=== PATIENT | male | born 1960 | race Two or more races ===

== ENCOUNTER 2020-06-22 19:58 | Emergency (ER) | payer SELFPAY ==
[~2020-06-22] VITALS: Ht 172.7 cm; Wt 99.8 kg
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
--- NOTE | 2020-06-22 20:15 | NUR ---
BROUGHT TO CT
[2020-06-22] MEDS ORDERED: HYDROMORPHONE 1 MG/1 ML DISP.SYRIN ONE (20:46)
[2020-06-22] MEDS ORDERED: TDAP [DIPH/PERTUSSIS/TET] 0.5 ML VIAL IM ONE (20:46)
[2020-06-22] MEDS: TDAP [DIPH/PERTUSSIS/TET] 0.5 ML VIAL IM ONE (20:54)
[2020-06-22] MEDS: HYDROMORPHONE INJ 2 MG/ML DISP.SYRIN IM ONE (20:54)
--- NOTE | 2020-06-22 21:09 | NUR ---
pt refusing to have sutures
--- NOTE | 2020-06-22 21:16 | NUR ---
CALLED [facility], OP 318, WILL SEND [employer] TO [facility].
--- NOTE | 2020-06-22 21:33 | NUR ---
Note christopher in EDM - 06/22/20 at 2203 by RAMILA Patient discharged to home in stable condition. Written and verbal after care instructions given. Patient verbalizes understanding of instruction and RX. Pt stated he would like to go home and not wait for [employer]. vss. Pt able to ambulate with steady gait.
[2020-06-22 21:34] VITALS: BP 131/76
[2020-06-22] MEDS ORDERED: ONDANSETRON 4 MG TAB.RAPDIS ONE (22:01)
--- NOTE | 2020-06-22 22:01 | NUR ---
[employer] AT BEDSIDE
[2020-06-22] MEDS: ONDANSETRON 4 MG TAB.RAPDIS SL ONE (22:02)
--- NOTE | 2020-06-22 22:02 | NUR ---
PT STATED FEELS LIGHTHEADED, AWARE.
--- NOTE | 2020-06-22 22:02 | NUR ---
[facility] OFF[employer]ERS AT BEDSIDE TALKING TO PT.
== END 2020-06-22 22:28 | disposition home or self-care (01) ==
LOC: ER 20:00
DX: S01.01XA Laceration without foreign body of scalp, initial encounter (principal); S01.511A Laceration without foreign body of lip, initial encounter; M79.602 Pain in left arm; Y04.0XXA Assault by unarmed brawl or fight, initial encounter; Y93.89 Activity, other specified; Y92.89 Other specified places as the place of occurrence of the external cause; Y99.8 Other external cause status
CPT/HCPCS: 70450; 70486; 72125; 90471; 90715; 96372; 99285; J1170; Q0162

== ENCOUNTER 2025-06-24 08:59 | Emergency (ER) | payer OTHER ==
[~2025-06-24] VITALS: Ht 172.7 cm; Wt 103.4 kg
[2025-06-24] MEDS ORDERED: IBUP-1955 PO (09:44)
[2025-06-24 10:00] VITALS: BP 138/81; TEMP 97.9; O2SAT 99
== END 2025-06-24 10:08 | disposition home or self-care (01) ==
LOC: ER 09:04
DX: M17.11 Unilateral primary osteoarthritis, right knee (principal); M25.561 Pain in right knee; M70.41 Prepatellar bursitis, right knee
CPT/HCPCS: 73564-TC

== ENCOUNTER 2025-09-12 15:09 | Emergency (ER) | payer OTHER ==
[~2025-09-12] VITALS: Ht 170.2 cm; Wt 104.3 kg
[~2025-09-12 15:09] MED LIST: IBUP-1955 PO
[2025-09-12 15:21] VITALS: BP 152/87; TEMP 98.2; O2SAT 98
[2025-09-12] MEDS ORDERED: LIDOCAINE 1% INJ 50 ML MDV IJ ONE (15:41)
[2025-09-12] MEDS: LIDOCAINE 2% 20 ML MDV TP ONE (15:43)
[2025-09-12] MEDS ORDERED: CEPH-570 PO (16:18)
[2025-09-12] MEDS ORDERED: IBUP-1490 PO (16:18)
[2025-09-12] MEDS ORDERED: HYDROCODONE/APAP 5/325MG TABLET ONE (16:34)
[2025-09-12] MEDS ORDERED: TDAP [DIPH/PERTUSSIS/TET] 0.5 ML VIAL IM ONE (16:34)
[2025-09-12] MEDS: HYDROCODONE/APAP 5/325MG TABLET PO ONE (16:41)
[2025-09-12] MEDS: TDAP [DIPH/PERTUSSIS/TET] 0.5 ML VIAL IM ONE (16:44)
[2025-09-12] MEDS ORDERED: CEPHALEXIN MONOHYDRATE 500 MG CAPSULE PO ONE (16:45)
[2025-09-12] MEDS: CEPHALEXIN MONOHYDRATE 500 MG CAPSULE PO ONE (16:49)
== END 2025-09-12 16:50 | disposition home or self-care (01) ==
LOC: ER 15:30
DX: S67.192A Crushing injury of right middle finger, initial encounter (principal); W23.0XXA Caught, crushed, jammed, or pinched between moving objects, initial encounter; Y93.89 Activity, other specified; Y92.89 Other specified places as the place of occurrence of the external cause; Y99.9 Unspecified external cause status
CPT/HCPCS: 29130; 73140; 90471; 90715; 99284; A6403; J3490